=== PATIENT | male | born 1950 | race Caucasian/White ===

== ENCOUNTER → 2020-03-17 08:29 | Outpatient (CLI) | payer MEDICARE, SELFPAY ==
--- NOTE | ~2020-03-17 | MR_ITS ---
EXAMINATION: MR shoulder RT wo con DATE: 03/17/2020 09:07 INDICATION: Right shoulder pain TECHNIQUE: Magnetic resonance imaging (MRI) of the right shoulder was performed without intravenous c ontrast. Sequences included axial PD-weighted FS FSE, coronal oblique PD-weighted FS FSE, coronal obl ique T2-weighted FS FSE, sagittal PD-weighted FS FSE, and sagittal T1-weighted SE. COMPARISON: Right shoulder radiographs dated 08/20/2019 FINDINGS: Coracoacromial arch: The acromion undersurface is curved in morphology (type II) with lateral downsloping and tiny lateral subacromial spur. The coracoacromial ligament is normal. Moderate acromioclavicular osteoarthritis w ith small inferiorly directed osteophytes. Rotator cuff: Supraspinatus tendinopathy with small intrasubstance tear measuring 6 mm AP by 6 mm medial collateral along the superior facet footplate of the supraspinatus tendon. The tear involves up to one half of the tendon thickness located more along the bursal side and could not exclude involvement of the burs al surface. Mild tendinopathy at the insertion of the infraspinatus tendon without discrete tear. The teres minor and subscapularis tendons are normal. Normal rotator cuff muscle bulk and signal. Biceps tendon, glenoid labrum and glenohumeral cartilage: Long head of the biceps tendon is normal. Labral tear beginning at the 12:00 position and extending p osteriorly and inferiorly to the 6:00 position. There is more amorphous increased signal and irregula r margins to the anterior and anteroinferior labrum likely additional labral degeneration. Mild nonun iform cartilage loss along the humeral head and glenoid with smooth chondral surface and without dege nerative subarticular changes. Fluid: Physiologic amount of fluid in the glenohumeral joint and biceps tendon sheath. No loose osteochondra l bodies. Small amount of fluid in the subacromial/subdeltoid bursa consistent with mild bursitis. Bones: Normal marrow signal with no edema, fracture or pathologic marrow replacing process. IMPRESSION: 1. Mild supraspinatus and infraspinatus tendinopathy with small mild partial-thickness tear at the in sertion of the supraspinatus tendon. 2. 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 3. Moderate acromioclavicular osteoarthritis. 4. Mild subacromial/subdeltoid bursitis. Reviewed, dictated and finalized at location A. IMPRESSION: 1. Mild supraspinatus and infraspinatus tendinopathy with small mild partial-th ickness tear at the insertion of the supraspinatus tendon. 2. 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 3. Moderate acromioclavicular osteoarthritis. 4. Mild subacromial/subdeltoid bursitis.
== END ==
PROVIDERS: Visit Provider Nurse Practitioner Family
DX: M75.51 Bursitis of right shoulder (principal); M19.011 Primary osteoarthritis, right shoulder
CPT/HCPCS: 73221

== ENCOUNTER 2020-09-13 02:08 | Outpatient (CLI) | payer MEDICARE, SELFPAY ==
[2020-09-13 20:09] LABS: SARS-CoV-2 RNA PCR Negative
== END 2020-09-13 02:09 | disposition home or self-care (01) ==
LOC: ANHCOVIDDT 02:08
PROVIDERS: PCP Internal Medicine; Visit Provider Orthopaedic Surgery
DX: Z01.818 Encounter for other preprocedural examination (principal); Z20.828 Contact with and (suspected) exposure to other viral communicable diseases
CPT/HCPCS: C9803; U0003

== ENCOUNTER 2020-09-17 01:23 | Day surgery (SDC) | payer MEDICARE, SELFPAY ==
[2020-09-03 13:55] VITALS: BMI 25.0
--- NOTE | 2020-09-16 10:15 | WPDANESEPPF ---
Anes - Initial Pre Proc Eval Procedure: Operation Date: 09/17/20 10:30 Proposed Procedures p Right Rotator Cuff Repair - Lino Shook MD Date/Time: 09/16/20 10:15 Surgeon: Lino Shook MD Pre Op Diagnosis: Right Rotator Cuff Tear Patient Data Age: 70 Gender: M Height: 1.73 m Weight: 74.54 kg Allergies Allergy/AdvReac Type Severity Reaction Status Date / Time Penicillins Allergy Mild Hives Verified 09/17/20 08:45 Home Medications Medication Instructions Recorded Confirmed Type aspirin 81 mg tablet,delayed 81 mg PO DAILY 08/20/19 09/17/20 History release meloxicam 15 mg tablet 15 mg PO DAILY #30 tablet 06/26/20 09/17/20 Rx chlorhexidine gluconate 4 % 1 applic TOPICAL ONCE #237 ml 07/02/20 09/17/20 Rx topical liquid Patient hx anesthesia problems: none Family hx anesthesia problems: none PMFSH Past Medical History Medical History Rotator cuff tear Rotator cuff tendonitis Surgical History Surgical History History of heart valve replacement Hx of artificial heart valve replacement Family History Family History Other Cerebrovascular accident Family history of cardiovascular disease Social History Social History Smoking status: Former smoker Second hand tobacco smoke exposure: No Additional smoking assessment comments: STATES 2PK/WEEK/15YS QUIT AGE 27 OR 28 Alcohol intake: current Drinks per week: 7 Substance use: never Substance use type: does not use Living arrangements: with family Spiritual care concerns: No Anes - Eval Final PreProcedure Day of Procedure 09/16/20 10:15 Patient weight: normal Heart: regular rate and rhythm Lungs: clear to auscultation and normal air movement Airway: Mallampati scale class II Neurological: alert and oriented Last oral intake: >/= 8 hours ASA classification: III Emergent: no Anesthetic plan: proceed Anesthesia type and monitoring: general ETT and standard monitoring Informed Consent: The patient's anesthetic plan and its attendant risks and benefits were discussed with the patient/family/POA. Questions were solicited and answers provided to the satisfaction of the patient/family/POA.
--- NOTE | 2020-09-16 10:16 | WPDANESPNB ---
Anes - Peripheral Nerve Block Date/Time: 09/16/20 10:16 I have discussed with the patient/family/POA the placement of a peripheral nerve block for post-operative pain management, including associated risks, benefits, complications, and side effects. Alternative methods of post-operative analgesia were detailed. Questions were solicited and answers provided to the satisfaction of the patient/family/POA. Time-Out: A pre-procedural Time-Out was completed immediately before starting the procedure and confirmed: Patient Identification, Site, Procedure, Patient Position and the Availability of Requisite Equipment. Clinical Indications: Acute post-operative pain management requested by the operative surgeon. Nerve Block Insertion Note Anes-nerve block: interscalene right Patient position: supine Skin prep: chlorhexidine Needle: 22 gauge, stimulating, insulated echogenic needle. Needle length: 50 mm Technique: ultrasound Injectate: bupivacaine 0.5% with epi 5 mcg/ml (30cc) Observations: tolerated well Complications: none Procedure start time:: 1013 Procedure end time:: 1016
[2020-09-17] VITALS (7 sets, daily range): BP systolic 100–162; BP diastolic 65–76; PULSE 63–80; RESP 14–16; TEMP 36.2–36.8; O2SAT 94–100
--- NOTE | 2020-09-17 07:22 | WPDHPUPDATE1 ---
History and Physical Update Update Date/Time: 09/17/20 07:22 History and Physical has been reviewed, including an updated exam of the patient. There are NO changes in the patient's condition. Risks, benefits, and alternatives have been discussed and questions answered. Patient agrees to proceed with procedure.
[2020-09-17] MEDS: ACETAMINOPHEN 500 MG TABLET 1000 MG PO (09:07)
[2020-09-17] MEDS: CELECOXIB 200 MG CAPSULE PO (09:09)
[2020-09-17] MEDS: LACTATED RINGERS 1,000 ML 30 ML IV CONT ×2 (09:15→12:39)
[2020-09-17] MEDS: CLINDAMYCIN 900 MG/D5W 50 ML 900 MG/50 ML PIGGYBACK 50 MG IVPB (11:13)
--- NOTE | 2020-09-17 12:10 | P.OP_ITS ---
Procedure Note - Detailed Date of procedure: 09/17/20 Pre-op diagnosis: Right Rotator Cuff Tear Post-op diagnosis: same Procedure performed: REPAIR OF RIGHT ROTATOR CUFF Description of procedure: THE PATIENT WAS TAKEN TO THE OPERATING ROOM AND THEN INTUBATED AND PLACED IN THE BEACH CHAIR POSITION. THE RIGHT UPPER EXTREMITY WAS PREPPED AND DRAPED IN THE NORMAL STERILE FASHION. AN INCISION WAS MADE IN BETWEEN THE AMEENA-LATERAL ACROMION AND THE AC JOINT. THE FASCIA WAS IDENTIFIED. NEXT A MINI OPEN INCISION WAS MADE THROUGH THE DELTOID MUSCLE EXPOSING THE SUBACROMIAL SPACE. A LIMITED ACROMIOPLASTY WAS PREFORMED. THE ROTATOR CUFF WAS IDENTIFIED. THERE WAS A FULL THICKNESS TEAR. IT MEASURED APPROXIMATELY 2 CM X 2 CM. THE GREATER TUBEROSITY WAS DEBRIDED TO BLEEDING BONE. 2 ARTHREX 5.5 SUTURE ANCHORS WERE PLACED IN TO GOOD BONE AND HAD VERY GOOD BITES. TOMMY-ZOE TYPE REPAIRS WERE DONE TO THE ROTATOR CUFF AND THERE WAS GOOD APPROXIMATION TO THE GREATER TUBEROSITY. THE REPAIR WAS EXCELLENT. THERE WAS NO IMPINGEMENT ON THE REPAIR FROM THE ACROMION WITH RANGE OF MOTION. THE WOUND WAS IRRIGATED WITH COPIOUS AMOUNTS OF ANTIBIOTIC SOLUTION. THE DELTOID MUSCLE WAS REPAIRED WITH #2 FIBER WIRE AND 0 VICRYL SUTURE. THE SUBCUTANEOUS LAYER WAS APPROXIMATED WITH 2- 0 VICRYL. THE SKIN WAS APPROXIMATED WITH 3-0 QUIL AND DERMABOND. STERILE DRESSING WAS APPLIED. PATIENT WAS EXTUBATED. Anesthesia: GETA Surgeon: Lino Shook MD Estimated blood loss (mL): 20 Complications: No immediate complications Condition: stable Disposition: PACU
== END 2020-09-17 14:30 | disposition home or self-care (01) ==
PROVIDERS: PCP Internal Medicine; Visit Provider Orthopaedic Surgery
PROC: (CPT 23420; principal; 2020-09-17 10:30)
DX: M75.101 Unspecified rotator cuff tear or rupture of right shoulder, not specified as traumatic (principal); G89.18 Other acute postprocedural pain; Z87.891 Personal history of nicotine dependence
CPT/HCPCS: 23412; 64415; A9270; C1713; J1100; J2370; J2405; J2704; J2710; J3010; J7120

== ENCOUNTER 2020-11-12 10:00 | Outpatient (RCR) | payer MEDICARE, SELFPAY ==
[2020-10-06 11:45] VITALS: BP_SYST 92
--- NOTE | 2020-10-06 13:09 | PTOPEVAL ---
INITIAL PHYSICAL THERAPY EVALUATION and PLAN OF CARE Thank you for referring Oral Gannon to [facility].? Steve is scheduled to be seen for physical therapy? 2x/week for 6 weeks. Please review, sign, date and return this plan of care JOE. I agree with and certify that the following plan of care is medically necessary. Referring Physician Date Admitting Provider: Attending Provider: Lino Shook MD Referring Provider: *PT Outpatient Evaluation Start: 10/06/20 11:50 Freq: Status: Active Protocol: Document 10/06/20 11:45 ARNALDO (Rec: 10/06/20 13:08 ARNALDO [id number]) Therapy Assessment Status Assessment Status Assessment Status Evaluation Outpatient Past Medical History Past Medical History Source of Past Medical History Recalled from Previous Visit, Confirmed with Patient/Family Neurological History Hx Neurological Disorders No Significant History Cardiovascular History Hx Aneurysm Yes: STATES AORTIC ANEURYSM 2016 LEAD TO HEART VALVE REPLACEMENT Hx Valve Replacement Yes: 2016 Hx Other 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 LEÓN Respiratory History Hx Respiratory Disorders No Significant History Gastrointestinal History Hx Gastrointestinal Disorders No Significant History Genitourinary History Hx Genitourinary Disorders No Significant History Musculoskeletal History Hx Other Musculoskeletal Disorders Yes: RT ROTATOR CUFF REPAIR Hematological History Hx Blood Transfusions Yes: POSSIBLE WITH HEART SURGERY, PT UNSURE Endocrine History Hx Endocrine Disorders No Significant History HEENT History Hx Other HEENT Disorders Yes: GLASSES Integumentary History Hx Skin Disorders No Significant History Reproductive History Hx Other Reproductive Disorders Yes: VASECTOMY Psychosocial History Hx Psychiatric Disorders No Significant History Anesthesia History Hx Anesthesia Reactions No Significant History Evaluation Information Problem Diagnosis R RTC repair Onset 09/17/20 Subjective Information Steve states that he has been Query Text:As Reported By Patient/ having shoulder pain for last Family 3 years or so. Did have PT in 2019 - didn't fully become painfree. Did have cortisone injections Aug 2019 - didn't help. Then pandemic hit - had MRI - partial tear - another injection - didn't help. Suggested surgery - found out in surgery full thickness tear . Since s
--- NOTE | 2020-11-12 11:06 | PTOPEVAL ---
PHYSICAL THERAPY RE-EVALUATION - DISCHARGE SUMMARY Thank you for referring Oral Gannon to [facility] Steve has progressed well in PT in regards to regaining ROM, strength, and function with R UE. He is compliant and consistent with his HEP. He is ready for discharge from PT to [facility]. If you wish for further PT - please refer him back for further strengthening. I agree with Steve's discharge from PT. Referring Physician Date Admitting Provider: Attending Provider: Lino Shook MD Referring Provider: Therapy Assessment Status Assessment Status Assessment Status Discharge Evaluation Information Problem Diagnosis R RTC repair Subjective Information Steve reports back to normal Query Text:As Reported By Patient/ activities for R UE and has Family begun light work related activities at [employer]. Using R hand away from his body is more difficult than close to the body, but otherwise no c/o's. He will still have some sharp pain when weight bearing through elbow on car door arm rest. Pain Assessment Timing of Pain Assessment Timing of Pain Assessment Assessment Pain Scale Pain Scale Used Numeric (1 - 10) Self Report Pain Assessment Right Shoulder(s) Reported Pain Level 3 Pain Description Sharp Lowest Pain Intensity 0 Greatest Pain Intensity 6 Pain Score Pain Score 3: Self Report Interventions Used Interventions Used By Clinicians Exercise,Heat,Ice Upper Extremity Range of Motion Scapular/ Shoulder Range of Motion Right Shoulder Flexion - Active 150 Shoulder Extension - Active 64 Shoulder Abduction - Active 140 Shoulder Medial Rotation - Active 75 Shoulder Medial Rotation - Active T12 Query Text:Reach Behind the Back Shoulder Lateral Rotation - Active 75 Shoulder Lateral Rotation - Active T1 Query Text:Reach Behind the Head Scapular/Shoulder Range of Motion Pain,Soft Tissue Restriction Limitations Scapular/Shoulder Range of Motion ER in neutral - 74 Comments Upper Extremity Muscle Strength Testing Scapular/Shoulder Right Shoulder Flexion Strength 4+ Good + Shoulder Extension Strength 5 Normal Shoulder Abduction Strength 4 Good Shoulder Medial Rotation Strength 5 Normal Shoulder Lateral Rotation Strength 5 Normal Shoulder Strength Comments supraspinatus - 4 PT Clinical Summary Clinical Summary Protocol: PTEVCODE PT Clinical Summary SPADI - pain score - 20% disability score - 11% total score - 15%
--- NOTE | 2020-11-14 16:34 | PCPTNOTE ---
Follow up phone call made to Jim. ZULETA pleased with progress - no need for further PT. Will d/c as per re-eval/discharge note.
== END 2020-11-20 11:22 | disposition home or self-care (01) ==
LOC: ANHHIPT 10:00
PROVIDERS: PCP Internal Medicine; Visit Provider Orthopaedic Surgery
DX: Z48.89 Encounter for other specified surgical aftercare (principal); M25.511 Pain in right shoulder
CPT/HCPCS: 97110; 97140; 97161

== ENCOUNTER 2023-05-09 13:56 | Outpatient (NON) | payer MEDICARE, SELFPAY | END 2023-05-09 13:57 | disposition home or self-care (01) | LOC: ANHLAB 05-11 13:58 | PROVIDERS: PCP Family Medicine; Visit Provider Nurse Practitioner | DX: D18.01 Hemangioma of skin and subcutaneous tissue (principal) | CPT/HCPCS: 88304 ==